=== PATIENT | female | born 1960 | race African-American/Black ===

== ENCOUNTER 2016-07-22 23:28 | Emergency (ER) | payer OTHER ==
[~2016-07-22] VITALS: Ht 149.9 cm; Wt 60.0 kg
[~2016-07-22 23:28] MED LIST: CIPR-9 PO; PERC5TAB12 PO; SUMA25 PO
[2016-07-22 23:30] VITALS: BP 154/91; PULSE 75; RESP 16; TEMP 98.2; O2SAT 99
--- NOTE | 2016-07-23 01:36 | PD ---
HPI Chief Complaint: Cold / Flu Symptoms Time Seen by Provider: 01:30 Travel History International Travel<30 days: Yes Contact w/Intl Traveler<30days: Yes Name of Country Traveled to: [facility] Traveled to known affect area: No History of Present Illness HPI 55-year-old black female presents to emergency department with a 2 day history of fever and chills, headache, sore throat, cough, myalgias, arthralgias, posttussive emesis and general malaise. She also states that she's been having some burning pain to the anterior and lateral aspect of her right thigh for the last 4 days. No history of trauma. She denies any numbness. No pain in the calf or medial thigh. She does report getting back from the [place] on the sixth of this month. She had gone there for a wedding. She denies any visual changes, eye problems, ear problems, abdominal pain, diarrhea or urinary symptoms. No rashes or lesions. PFSH Past Medical History Cancer: No Cardiac Catheterization: No Cardiovascular Problems: Yes (MURMUR) High Cholesterol: No Diminished Hearing: No Endocrine: No Gastrointestinal Disorders: Yes (GB DISEASE) Immune Disorder: No Psychiatric: No Respiratory: No Immunizations Current: No Migraines: Yes Tetanus Vaccination: Unknown ?: Not Menopausal: Yes : 5 Para: 4 Miscarriage: 1 Tubal Ligation: Yes Past Surgical History Section: Yes ( X 1) Cholecystectomy: Yes Genitourinary Surgery: Yes ( X 1) Gynecologic Surgery: Yes (TUBAL LIGATION ) Hysterectomy: Yes Other Surgery: Yes (REMOVAL OF GALL STONES) Social History Alcohol Use: Yes (OCC) Tobacco Use: No Substance Use: No Allergies-Medications (Allergen,Severity, Reaction): Coded Allergies: Lortab (Verified Allergy, Severe, Itching, 07/23/16) Rocephin (Verified Allergy, Severe, 07/22/16) Septra (Verified Allergy, Severe, 07/22/16) Zithromax (Verified Allergy, Severe, 07/22/16) Reported Meds & Prescriptions Reported Meds & Active Scripts Active Cipro (Ciprofloxacin HCl) 500 Mg Tab 500 Mg PO BID 7 Days Imitrex 25 Mg Tab (Sumatriptan Succinate) 25 Mg Tab 25 Mg PO BID PRN MAY REPEAT X 1 IN 2 HOURS Percocet 5-325 mg (Oxycodone/Acetaminophen) Oxycodone 5/325 Acetaminophen Tab 1- 2 Tab PO Q6H PRN Review of Systems Except as stated in HPI: all other systems reviewed are Neg Physical Exam Narrative GENERAL: Well-developed, well-nourished in no apparent distress. Nontoxic appearing. HEAD: Normocephalic, atraumatic. EYES: Pupils equal round and reactive. Extraocular motions intact. No scleral icterus. No injection or drainage. ENT: Nose clear. Throat without erythema, tonsillar hypertrophy or exudate. Uvula midline. Airway patent. NECK: Trachea midline. Supple, nontender, moves head freely. No central bony tenderness or spasm. CARDIOVASCULAR: Regular rate and rhythm without murmurs, gallops, or rubs. RESPIRATORY: Clear to auscultation. Breath sounds equal bilaterally. No wheezes , rales, or rhonchi. GASTROINTESTINAL: Abdomen soft, non-tender, nondistended. No hepato-splenomegaly , or palpable masses. No guarding. EXTREMITIES: No clubbing, cyanosis, or edema. No joint tenderness. BACK: Nontender without deformity. No flank tenderness. NEUROLOGICAL: Awake, alert and oriented x 3 .Cranial nerves grossly intact. Motor and sensory grossly within normal limits. Normal speech. Data Data Last Documented VS Vital Signs Date Time Temp Pulse Resp B/P Pulse Ox O2 Delivery O2 Flow Rate FiO2 07/22/16 23:30 98.2 75 16 154/91 99 Orders Influenzae A/B Antigen (07/23/16 01:37) [facility] Medical Decision Making Medical Screen Exam Complete: Yes Emergency Medical Condition: Yes Medical Record Reviewed: Yes Interpretation(s) Influenza: Negative Differential Diagnosis MDM: High Differential diagnoses: Pneumonia, bronchitis, URI, asthma, RAD, influenza, dengue fever, Zika virus Narrative Course Patient's influenza is negative. This is an influenza-like illness. She is advised to follow-up with her primary care doctor as well 1-2 days for recheck. Diagnosis Primary Impression: Influenza-like illness Patient Instructions: General Instructions Departure Forms: Tests/Procedures, Work Release Special Instructions: No work 3 days Additional Instructions: Rest. Increase fluids. 3 Advil every 6 hours. Sudafed. Afrin nasal spray for in the next 3 days only. Recheck with your doctor in the next 1-2 days. Med/Other Pt SpecificInfo: No Meds Exist/No RX given Disposition: 01 DISCHARGE HOME Condition: Stable Haim Baum Jul 23, 2016 01:36
== END 2016-07-23 02:30 | disposition home or self-care (01) ==
LOC: NEPB 23:28
DX: R69 Illness, unspecified (principal); R50.9 Fever, unspecified; R51 Headache; R07.0 Pain in throat; R05 Cough; M79.1 Myalgia; M25.50 Pain in unspecified joint; R53.81 Other malaise; M79.651 Pain in right thigh; Z86.79 Personal history of other diseases of the circulatory system; Z87.19 Personal history of other diseases of the digestive system; Z86.69 Personal history of other diseases of the nervous system and sense organs
CPT/HCPCS: 87804; 99283

== ENCOUNTER → 2016-08-21 | Outpatient (CLI) | payer OTHER ==
--- NOTE | 2016-08-21 11:37 | RADRPT ---
EXAM DATE/TIME: 08/21/2016 10:29 [facility] COMPARISON: No previous studies available for comparison. INDICATIONS : Bilateral leg swelling. MEDICAL HISTORY : Heart murmur. Uterine cancer. SURGICAL HISTORY : Thyroidectomy.Hysterectomy. Tubal ligation. ENCOUNTER: Initial ACUITY: 4 - 6 months PAIN SCORE: 8/10 LOCATION: Bilateral legs. TECHNIQUE: Venous ultrasound of the left and right leg was performed from the inguinal ligament to the proximal calf. Real-time, color Doppler and spectral tracing, compression and augmentation techniques were us ed. FINDINGS: RIGHT LEG: There is normal compressibility of the deep venous system from the inguinal region to the proximal ca lf. No echogenic clot is seen in the lumen of the common femoral, femoral, popliteal, and posterior tibial veins. There is a normal response of the venous system to proximal and distal augmentation an d respiration. LEFT LEG: There is normal compressibility of the deep venous system from the inguinal region to the proximal ca lf. No echogenic clot is seen in the lumen of the common femoral, femoral, popliteal, and posterior tibial veins. There is a normal response of the venous system to proximal and distal augmentation an d respiration. CONCLUSION: 1. No DVT identified within either lower extremity. Jose Rafael Dodson MD on August 21, 2016 at 11:34 Board Certified Radiologist. This report was verified electronically.
== END ==
LOC: HRAD 10:12
PROVIDERS: ATTEND Specialist
DX: C49.5 Malignant neoplasm of connective and soft tissue of pelvis (principal); M79.89 Other specified soft tissue disorders
CPT/HCPCS: 93970